=== PATIENT | female | born 1980 | race African-American/Black ===

== ENCOUNTER 2017-10-15 17:45 | Emergency (ER) | payer BC, OTHER ==
[~2017-10-15] VITALS: Ht 170.2 cm; Wt 95.3 kg
[2017-10-15 19:01] LABS: Urine Bacteria NONE SEEN /hpf (None Seen); Urine Blood Negative /uL (Negative); Urine Specific Gravity 1.023 (1.001-1.035); Urine WBC <1 /hpf (0 - 5)
[2017-10-16 00:14] VITALS: BP 114/66
[2017-10-16 00:23] LABS: Basophils # (auto) 0 uL; Basophils % (auto) 0.5 % (0.0-2.0); Eosinophils # (auto) 0.1 uL; Eosinophils % (auto) 1.2 % (0.0-7.0); Hemoglobin 13.1 g/dL (12.2-16.2); Lymphocytes % (auto) 43.3 % (10.0-50.0); Mean Corpuscular Hemoglobin 31.7 pg (28.0-32.0); Mean Corpuscular Hgb Conc. 33.6 g/dL (32.0-36.0); Mean Corpuscular Volume 94.3 fL (80.0-100.0); Monocytes # (auto) 0.8 uL; Monocytes % (auto) 8.6 % (0.0-12.0); Neutrophils # (auto) 4.2 uL; Neutrophils % (auto) 46.4 % (37.0-80.0); Nucleated Red Blood Cells % 0.2 %; Platelet Count (auto) 268 10^3/uL (140-450); Red Blood Cells 4.14 10^6/uL (4.0-5.20); Red Cell Distribution Width 14.6 % (11.8-14.3); White Blood Cell 9.1 10^3/uL (4.4-10.8)
[2017-10-16 00:36] LABS: BUN/Creatinine Ratio 13.6; Calcium 8.8 mg/dL (8.5-10.1); Potassium 3.7 mmol/L (3.5-5.1)
[2017-10-16 00:38] LABS: Bilirubin, Total 0.3 mg/dL (0.2-1.0); Total Protein 7.9 g/dL (6.4-8.2)
[2017-10-16] MEDS ORDERED: KETOROLAC TROMETH 30 MG/ML 1ML VIAL IV ONE (00:45)
[2017-10-16] MEDS ORDERED: ONDANSETRON HCL 4 MG/2 ML VIAL IV ONE (00:45)
[2017-10-16] MEDS ORDERED: MORPHINE SULFATE 4 MG/ML SYR/VIAL IV ONE (00:45)
== END 2017-10-16 02:42 | disposition home or self-care (01) ==
LOC: ER 17:45
DX: S29.011A Strain of muscle and tendon of front wall of thorax, initial encounter (principal); K52.9 Noninfective gastroenteritis and colitis, unspecified; I10 Essential (primary) hypertension; Z88.0 Allergy status to penicillin; X58.XXXA Exposure to other specified factors, initial encounter; Y93.89 Activity, other specified; Y99.8 Other external cause status; Y92.89 Other specified places as the place of occurrence of the external cause
CPT/HCPCS: 36415; 71046; 74176; 80053; 81001; 81025; 82150; 83690; 85025; 96374; 99285; J1885; J2270; J2405

== ENCOUNTER 2021-05-23 17:14 | Emergency (ER) | payer BC, OTHER ==
[~2021-05-23] VITALS: Ht 170.2 cm; Wt 90.3 kg
[2021-05-23 20:16] VITALS: BP 116/77
== END 2021-05-23 20:47 | disposition home or self-care (01) ==
LOC: ER 17:14
DX: S10.15XA Superficial foreign body of throat, initial encounter (principal); M54.2 Cervicalgia; I10 Essential (primary) hypertension; Z88.0 Allergy status to penicillin; Z91.041 Radiographic dye allergy status; X58.XXXA Exposure to other specified factors, initial encounter; Y93.9 Activity, unspecified; Y92.89 Other specified places as the place of occurrence of the external cause; Y99.8 Other external cause status
CPT/HCPCS: 70490

== ENCOUNTER → 2021-08-18 | Emergency (ER) | payer BC, OTHER ==
[~2021-08-18] VITALS: Ht 170.2 cm; Wt 88.5 kg
[2021-08-18 23:15] LABS: Urine Bacteria FEW /hpf (None Seen); Urine Blood Negative /uL (Negative); Urine Specific Gravity 1.002 (1.001-1.035); Urine WBC 3 /hpf (0 - 5)
[2021-08-18 23:35] LABS: Basophils # (auto) 0.1 10 ^3/uL (0-0.2); Basophils % (auto) 0.6 % (0.0-2.0); Eosinophils # (auto) 0 10 ^3/uL (0-0.8); Eosinophils % (auto) 0.3 % (0.0-7.0); Hematocrit 38.3 % (36.0-46.0); Hemoglobin 12.8 g/dL (12.2-16.2); Lymphocytes % (auto) 20.2 % (10.0-50.0); Mean Corpuscular Hemoglobin 31.4 pg (28.0-32.0); Mean Corpuscular Hgb Conc. 33.5 g/dL (32.0-36.0); Mean Corpuscular Volume 93.5 fL (80.0-100.0); Monocytes # (auto) 0.7 10 ^3/uL (0-1.3); Monocytes % (auto) 6.9 % (0.0-12.0); Neutrophils # (auto) 7.1 10 ^3/uL (1.6-8.6); Red Blood Cells 4.09 10^6/uL (4.0-5.20); Red Cell Distribution Width 14.8 % (11.8-14.3); White Blood Cell 9.9 10^3/uL (4.4-10.8)
[2021-08-18 23:52] LABS: Albumin 3.7 g/dL (3.4-5.0); BUN/Creatinine Ratio 6.4; Calcium 8.7 mg/dL (8.5-10.1); Potassium 3.8 mmol/L (3.5-5.1)
[2021-08-18 23:55] LABS: Bilirubin, Total 0.5 mg/dL (0.2-1.0); Total Protein 7.3 g/dL (6.4-8.2)
[2021-08-19 01:45] VITALS: BP 136/68
== END | disposition home or self-care (01) ==
LOC: ER 22:12
DX: N39.0 Urinary tract infection, site not specified (principal); T37.0X5A Adverse effect of sulfonamides, initial encounter; I10 Essential (primary) hypertension; Z88.0 Allergy status to penicillin; Z91.041 Radiographic dye allergy status; Y92.89 Other specified places as the place of occurrence of the external cause
CPT/HCPCS: 36415; 80053; 81001; 85025

== ENCOUNTER 2021-10-12 18:17 | Emergency (ER) | payer BC, OTHER ==
[~2021-10-12] VITALS: Ht 170.2 cm; Wt 86.2 kg
[2021-10-12 21:55] LABS: Basophils # (auto) 0 10 ^3/uL (0-0.2); Basophils % (auto) 0.6 % (0.0-2.0); Eosinophils # (auto) 0 10 ^3/uL (0-0.8); Eosinophils % (auto) 0.1 % (0.0-7.0); Hematocrit 40.2 % (36.0-46.0); Hemoglobin 13.6 g/dL (12.2-16.2); Lymphocytes # (auto) 1.9 10 ^3/uL (0.4-5.4); Lymphocytes % (auto) 22.2 % (10.0-50.0); Mean Corpuscular Hemoglobin 31.9 pg (28.0-32.0); Mean Corpuscular Hgb Conc. 33.7 g/dL (32.0-36.0); Mean Corpuscular Volume 94.5 fL (80.0-100.0); Monocytes # (auto) 0.4 10 ^3/uL (0-1.3); Monocytes % (auto) 4.8 % (0.0-12.0); Neutrophils # (auto) 6.1 10 ^3/uL (1.6-8.6); Neutrophils % (auto) 72.3 % (37.0-80.0); Nucleated Red Blood Cells % 0.1 %; Red Blood Cells 4.25 10^6/uL (4.0-5.20); Red Cell Distribution Width 14.4 % (11.8-14.3); White Blood Cell 8.5 10^3/uL (4.4-10.8)
[2021-10-12 22:09] LABS: Albumin 4.3 g/dL (3.4-5.0); Calcium 9.3 mg/dL (8.5-10.1); Magnesium 2.8 mg/dL (1.6-2.6); Potassium 3.7 mmol/L (3.5-5.1)
[2021-10-12 22:14] LABS: BUN/Creatinine Ratio 7.4; Bilirubin, Total 0.3 mg/dL (0.2-1.0); Total Protein 8.1 g/dL (6.4-8.2)
[2021-10-12 23:43] LABS: Urine Bacteria NONE SEEN /hpf (None Seen); Urine Blood Negative /uL (Negative); Urine Specific Gravity 1.004 (1.001-1.035); Urine WBC <1 /hpf (0 - 5)
[2021-10-13 05:30] VITALS: BP 119/72
== END 2021-10-13 05:36 | disposition home or self-care (01) ==
LOC: ER 18:19
DX: R07.89 Other chest pain (principal); R20.0 Anesthesia of skin; I10 Essential (primary) hypertension; Z88.0 Allergy status to penicillin; Z91.041 Radiographic dye allergy status
CPT/HCPCS: 36415; 80053; 81001; 83735; 83880; 84443; 84484; 84702; 85025; 93005